=== PATIENT | male | born 1985 | race Caucasian/White ===

== ENCOUNTER → 2024-12-21 | Outpatient (CLI) | payer BC, SELFPAY ==
--- NOTE | 2024-12-21 15:06 | XR_ITS ---
Examination: Abdomen AP single view Technique: AP portable supine abdomen, single view Exam date and time: December 21, 2024 1510 hours INDICATIONS: Right-sided abdominal pain beginning 3 months ago. FINDINGS: Moderate stool throughout the colon No obstruction No free air No abnormal calcific densities IMPRESSION: Nonobstructive bowel gas pattern
== END | disposition home or self-care (01) ==
PROVIDERS: Referring Provider Surgery; Visit Provider Surgery
DX: R10.9 Unspecified abdominal pain (principal)
CPT/HCPCS: 74018